=== PATIENT | male | born 1970 | race Caucasian/White ===

== ENCOUNTER 2021-01-07 08:35 | Emergency (ER) | payer OTHER, SELFPAY ==
[2021-01-07 08:36] VITALS: BP 118/90; PULSE 59; RESP 18; TEMP 36.3; O2SAT 100; BMI 24.8
--- NOTE | 2021-01-07 08:54 | CT_ITS ---
STUDY: CT ABDOMEN AND PELVIS WITHOUT CONTRAST REASON FOR EXAM: Male, 50 years old. One-day history of left flank/groin pain. RADIATION DOSAGE (If Supplied By Facility): CTDIvol = ( 6.60 ) mGy, DLP = ( 364.23 ) mGycm TECHNIQUE: Transaxial images were obtained from the dome of the diaphragm to the symphysis pubis without oral contrast, and without intravenous contrast. Sagittal and coronal images were reconstructed. Individualized dose optimization techniques were used for this CT. COMPARISON: None. FINDINGS: Minimal degree of dependent bibasilar atelectasis. Minimal increased markings in the anterior aspect of the right middle lobe suggestive of atelectasis. The visualized portions of the heart are within normal limits. Normal liver. Normal gallbladder and extrahepatic biliary system. Normal spleen. Normal pancreas. Normal bilateral adrenal glands. Normal right kidney. Mild degree of left hydronephrosis. There is a 2 mm calculus in the distal portion of the left ureter just proximal to the left ureterovesical junction. There is a small hiatal hernia. Normal small intestine. Normal colon. The appendix is visualized and appears normal. There is scattered atherosclerotic calcification of the abdominal aorta, without a demonstrated aneurysm. Normal inferior vena cava. Normal retroperitoneum. Normal urinary bladder. There are prostatic calcifications. There is a small umbilical hernia containing fat. Small left inguinal hernia containing fat. Normal osseous structures. CT/Abdomen/Pelvis without Cont IMPRESSION: Mild degree of the left hydronephrosis due to a 2 mm calculus in the distal portion of the left ureter just proximal to the left ureterovesical junction. Small left inguinal hernia containing fat. Small umbilical hernia containing fat. Electronically Signed: Gunnar Flores MD at 9:42 EDT , Service support ,
--- NOTE | 2021-01-07 08:55 | ED.DCSUM_ITS ---
History of Present Illness Chief Complaint: Abd Pain Informant: Patient Narrative: 50-year-old male presents the emergency department with left lower abdominal pain radiating to the flank. He states that he was in his normal state of health yesterday and when he woke this morning. He rode his bike to work and when he got off his bike he had severe pain in the left testicle radiate up into his abdomen and into the left flank. He states that he expected it to subside so he tried to work but it was not. Eventually he needed to call the ambulance. He states the pain is still present and it is waxing and waning. He denies any previous occurrences of this. Normal bowel movements. He states he feels like he needs to urinate frequently but he is only getting small amounts. Past Medical History - Allergies and Home Meds Allergies/Adverse Reactions: Allergies No Known Allergies Allergy (Verified 01/07/21 08:39) Primary Care Physician: Ottoniel Grijalva DO [Primary Care Provider] - Past Medical History: None Surgical History: no surgical history Lives: With Family Smoking Status: Current every day smoker Alcohol: None Drugs: None Review of Systems General: Denies: Chills, Fever, Sweats Eyes: Denies: Visual changes - bilaterally, Diplopia ENT: Denies: Rhinorrhea, Sore throat Cardiovascular: Denies: Chest pain, Palpitations Respiratory: Denies: Dyspnea, Cough, Dyspnea on exertion Gastrointestinal: Reports: Abdominal pain, Nausea. Denies: Vomiting, Diarrhea, Melena, Hematochezia Genitourinary: Reports: Frequency, - - Left testicular pain. Denies: Dysuria, Hematuria Musculoskeletal: Reports: Back pain - Left CVA pain. Denies: Extremity Pain Skin: Denies: Rash, Wounds Neurological: Denies: Headache, Weakness, Numbness Physical Exam Vital Signs/Narrative: Vital Signs Temp Pulse Resp BP Pulse Ox 01/07/21 08:36 97.3 F L 59 L 18 118/90 H 100 Inital Vital Signs reviewed: Yes General: Well nourished, Well developed, No Acute Distress, - - Patient appears uncomfortable lying in the bed Head: Normocephalic, Atraumatic Eyes: Perrl, EOMI ENT: Moist mucous membranes, No rhinorrhea Neck: Supple, Nontender Cardiovascular: Regular rate, Regular rhythm, No murmurs Respiratory: No distress, CTA bilaterally, Chest nontender Abdomen: Soft, Nontender, Nondistended, Normal bowel sounds Back: Nontender, Normal Inspection Extremities: Nontender, No edema Skin: Normal color, No rash Neurological: Alert, Oriented x3, Cranial nerves II-XII grossly intact, Normal Strength, Normal Sensation Psychological: Normal affect, Normal Mood Diagnostic/Tx/Re-eval Clinical Impression(s) from Imaging Studies Abdomen/Pelvis CT 01/07/21 08:54 IMPRESSION: Mild degree of the left hydronephrosis due to a 2 mm calculus in the distal portion of the left ureter just proximal to the left ureterovesical junction. Small left inguinal hernia containing fat. Small umbilical hernia containing fat. Electronically Signed: Gunnar Flores MD at 9:42 EDT , Service support , Laboratory Last Values WBC 6.3 K/mm3 (4.4-11.0) 01/07/21 08:05 RBC 4.37 M/mm3 (4.6-6.2) L 01/07/21 08:05 Hgb 13.8 g/dL (13.0-16.5) 01/07/21 08:05 Hct 42.2 % (40-54) 01/07/21 08:05 MCV 96.6 fL (80-94) H 01/07/21 08:05 MCH 31.6 pg (27.0-32.0) 01/07/21 08:05 MCHC 32.7 g/dL (32-36) 01/07/21 08:05 RDW Std Deviation 47.0 fl (35.1-43.9) H 01/07/21 08:05 RDW Coeff of Pinky 13.2 % (11.6-14.6) 01/07/21 08:05 Plt Count 373 K/mm3 (150-450) 01/07/21 08:05 MPV 9.6 fl (6.2-12.0) 01/07/21 08:05 Immature Gran % (Auto) 0.300 % (0.0-0.9) 01/07/21 08:05 Neut % (Auto) 60.8 % (47-70) 01/07/21 08:05 Lymph % (Auto) 26.5 % (19-41) 01/07/21 08:05 [place] % (Auto) 8.9 % (0-10) 01/07/21 08:05 Eos % (Auto) 2.5 % (0-5) 01/07/21 08:05 Baso % (Auto) 1.0 % (0-1) 01/07/21 08:05 Absolute Neuts (auto) 3.8 X10^3/uL (2.0-7.7) 01/07/21 08:05 Absolute Lymphs (auto) 1.67 X10^3/uL (0.83-4.51) 01/07/21 08:05 Nucleated RBC % 0 % (0-5) 01/07/21 08:05 Sodium 139 mmol/L (136-145) 01/07/21 08:05 Potassium 3.9 mmol/L (3.5-5.1) 01/07/21 08:05 Chloride 108 mmol/L (98-107) H 01/07/21 08:05 Carbon Dioxide 28.0 mmol/L (21.0-32.0) 01/07/21 08:05 Anion Gap 3 (5-15) L 01/07/21 08:05 BUN 13 mg/dL (7-18) 01/07/21 08:05 Creatinine 0.93 mg/dL (0.70-1.30) 01/07/21 08:05 Estim Creat Clear Calc 100.30 ml/min 01/07/21 08:05 Est GFR (MDRD) Af Amer 112 mL/min (>60) 01/07/21 08:05 Est GFR (MDRD) Non-Af 92 mL/min (>60) 01/07/21 08:05 BUN/Creatinine Ratio 14.0 RATIO (10-20) 01/07/21 08:05 Glucose 114 mg/dL (74-106) H 01/07/21 08:05 Calcium 8.6 mg/dL (8.5-10.1) 01/07/21 08:05 Urine Color Yellow (Yellow) 01/07/21 09:00 Urine Clarity Clear (Clear) 01/07/21 09:00 Urine pH 7.0 (5.0 - 8.0) 01/07/21 09:00 Ur Specific [place] 1.010 (1.002-1.030) 01/07/21 09:00 Urine Protein 30 mg/dl (Negative) H 01/07/21 09:00 Urine Glucose (UA) Normal mg/dl (Normal) 01/07/21 09:00 Urine Ketones 5 mg/dl (Negative) H 01/07/21 09:00 Urine Occult Blood 250 /ul (Negative) H 01/07/21 09:00 Urine Nitrite Negative (Negative) 01/07/21 09:00 Urine Bilirubin Negative mg/dL (Negative) 01/07/21 09:00 Urine Urobilinogen 1 mg/dl (Normal) H 01/07/21 09:00 Ur Leukocyte Esterase 25 /ul (Negative) H 01/07/21 09:00 Urine RBC 10-25 SEEN /hpf (0-5) 01/07/21 09:00 Urine WBC 0-5 SEEN /hpf (0-5) 01/07/21 09:00 Ur Squamous Epith Cells 0-5 SEEN /hpf (0-5) 01/07/21 09:00 Urine Bacteria 0 SEEN /hpf (None Seen) 01/07/21 09:00 Urine Mucus 0 SEEN /hpf (<or=2+) 01/07/21 09:00 - Medical Decision Making Analysis shows no microscopic hematuria. Normal creatinine. Patient received IV fluids Toradol morphine and is feeling significantly better. CT down pelvis demonstrates a distal left 2 mm stone which is most likely the cause of his pain. I will write for oxycodone and Toradol at home. Follow-up with urology ED Disposition - Plan for ED Patient: Disposition: Home or Assisted Living Diagnosis: Left ureteral calculus, Renal colic on left side Instructions: ED Kidney Stone w/ Colic Prescriptions: Oxycodone HCl/Acetaminophen [Percocet 5/325] 1 tablet PO Q6H PRN PRN 3 Days #12 tab PRN Reason: Pain Prescription Printed Ketorolac [Toradol] 10 mg PO Q8H PRN #15 tablet PRN Reason: Pain Prescription Printed Referrals: Ottoniel Grijalva DO [Primary Care Provider] - As Needed Ag Perez MD [STAFF PHYSICIAN] - (Call to arrange urologic follow-up)
[2021-01-07 09:02] LABS: Absolute Lymphocyte Count 1.67 X10^3/uL (0.83-4.51); Absolute Neutrophil Count 3.8 X10^3/uL (2.0-7.7); Basophil# 0.06 X10^3/uL; Eosinophil# 0.16 X10^3/uL; Eosinophils% 2.5 % (0-5); Hematocrit 42.2 % (40-54); Hemoglobin 13.8 g/dL (13.0-16.5); Lymphocyte # 1.67 X10^3/ul (0.83-4.51); Lymphocyte % 26.5 % (19-41); Mean Corp Hgb Conc 32.7 g/dL (32-36); Mean Corpuscular Hgb 31.6 pg (27.0-32.0); Mean Corpuscular Volume 96.6 fL (80-94); Mean Platelet Vol. 9.6 fl (6.2-12.0); Monocyte# 0.56 X10^3/uL; Monocyte% 8.9 % (0-10); NRBC Flagged by Analyzer 0 % (0-5); Neutrophil # 3.84 X10^3/uL (2.7-7.7); Neutrophil % 60.8 % (47-70); Platelet Count 373 K/mm3 (150-450); RBC Distribution Width CV 13.2 % (11.6-14.6); Red Blood Count 4.37 M/mm3 (4.6-6.2); White Blood Count 6.3 K/mm3 (4.4-11.0)
[2021-01-07] MEDS: Ketorolac 30 MG/ML Syringe IV (09:09)
[2021-01-07 09:10] LABS: Anion Gap 3 (5-15); BUN 13 mg/dL (7-18); Calcium,Total 8.6 mg/dL (8.5-10.1); Chloride 108 mmol/L (98-107); Creatinine, Serum 0.93 mg/dL (0.70-1.30); EST Glomerular Filtration Rate 92 mL/min (>60); Est Glom Filt Rate - Afr Amer 112 mL/min (>60); Glucose 114 mg/dL (74-106); Potassium 3.9 mmol/L (3.5-5.1); Sodium Level 139 mmol/L (136-145)
[2021-01-07 09:10] LABS: Bacteria 0 SEEN /hpf (None Seen); Mucous, Urine 0 SEEN /hpf (<or=2+)
[2021-01-07] MEDS: Morphine 4 MG/ML Syringe IV (09:11)
[2021-01-07] MEDS: Ondansetron 4 MG/2 ML Vial IV (09:11)
[2021-01-07] MEDS: 0.9% Normal Saline 1,000 ML 250 ML IV (09:12)
[2021-01-07 09:14] LABS: Color, Urine Yellow (Yellow); Glucose, Dipstick Normal (Normal); Ketone-Dipstick 5 mg/dl (Negative); Leukocyte Esterase-Dipstick 25 /ul (Negative); Nitrite-Dipstick Negative (Negative); Occult Blood-Urine 250 /ul (Negative); Protein-Dipstick 30 mg/dl (Negative); Urine Bilirubin Dipstick Negative (Negative); Urine Clarity Clear (Clear); Urine Urobilinogen 1 mg/dl (Normal)
[2021-01-07 09:20] LABS: Red Blood Cells-Urine 10-25 SEEN /hpf (0-5); Squamous Epithelial Cells - UA 0-5 SEEN /hpf (0-5); White Blood Cells 0-5 SEEN /hpf (0-5)
[2021-01-07 10:11] VITALS: BP 133/67; PULSE 67; RESP 18; TEMP 36.6
== END 2021-01-07 10:17 | disposition home or self-care (01) ==
PROVIDERS: Emergency Provider Emergency Medicine; PCP Family Medicine
DX: N13.2 Hydronephrosis with renal and ureteral calculous obstruction (principal); F17.200 Nicotine dependence, unspecified, uncomplicated
CPT/HCPCS: 74176; 80048; 81001; 85025; 96361; 96374; 96375; 99285; J2405

== ENCOUNTER → 2023-10-20 | Outpatient (CLI) | payer SELFPAY ==
--- NOTE | 2023-10-20 14:43 | RAD_ITS ---
EXAM: XR ABDOMEN, 1 VIEW CLINICAL INDICATION: URINARY CALCULI TECHNIQUE: Frontal supine view of the abdomen/pelvis. COMPARISON: No relevant prior studies available. FINDINGS: LOWER THORAX: No acute pathology. GASTROINTESTINAL TRACT: Unremarkable. Non-obstructive. No bowel or stomach distention. ORGANS: Unremarkable as visualized. No organomegaly. No abnormal calcifications. BONES/JOINTS: No acute pathology. SOFT TISSUES: No acute pathology. RAD/Abdomen Single View IMPRESSION: No obvious radiopaque calculi in the kidneys, ureters and urinary bladder although limited by fecal contents obscuring the kidneys. Electronically Signed: Cory Melendez MD at 12:47 EST ,
== END | disposition home or self-care (01) ==
PROVIDERS: PCP Family Medicine; Referring Provider Nurse Practitioner; Visit Provider Nurse Practitioner
DX: Z87.442 Personal history of urinary calculi (principal)
CPT/HCPCS: 74018